=== PATIENT | female | born 1985 | race Caucasian/White ===

== ENCOUNTER 2019-12-06 14:02 | Inpatient (IN) | payer SELFPAY ==
[~2019-12-06] VITALS: Ht 160 cm; Wt 64.0 kg
[2019-12-06] MEDS ORDERED: ONDANSETRON HCL 4MG/2ML INJ IV STA (15:12)
[2019-12-06] MEDS ORDERED: SODIUM CHLORIDE 0.9% 1,000 ML IV ONE (15:12)
[2019-12-06] MEDS ORDERED: MORPHINE SULFATE 4 MG/ML CPJ (NOT FOR IM USE) IV STA (15:12)
[2019-12-06 15:51] LABS: CLARITY URINE CLEAR (CLEAR); COLOR URINE YELLOW (YELLOW); KETONES URINE NEGATIVE (NEGATIVE); LEUKOCYTE ESTERASE URINE 3+ (NEGATIVE); NITRITE URINE NEGATIVE (NEGATIVE); OCCULT BLOOD URINE 3+ (NEGATIVE); PROTEIN URINE NEGATIVE (NEGATIVE); SPECIFIC GRAVITY URINE 1.005 (1.005-1.030); UROBILINOGEN URINE 0.2 E.U./dL (0.2-1.0)
[2019-12-06 16:11] LABS: BASOPHILS % 0.7 % (0.0-2.0); EOSINOPHILS % 0.4 % (0.0-5.0); HEMATOCRIT. 39.8 % (36.0-48.0); HEMOGLOBIN. 13.4 g/dL (12.0-16.0); LYMPHOCYTES % 23.8 % (20.0-50.0); MEAN CORPUSCULAR HEMOGLOBIN 29.6 pg (28.0-32.0); MEAN CORPUSCULAR VOLUME 87.7 fL (81.0-99.0); MEAN PLATELET VOLUME 8.9 fl (7.4-10.4); MONOCYTES % 6.5 % (2.0-8.0); NEUTROPHILS % 68.6 % (40.0-76.0); PLATELET 273 x1000/uL (130-400); RED BLOOD CELL COUNT 4.54 mill/uL (4.2-5.4); RED CELL DISTRIBUTION WIDTH 14.7 % (11.6-14.6)
[2019-12-06 16:14] LABS: CHLORIDE 108 mEq/L (98-107)
[2019-12-06 16:22] LABS: HCG SCREEN NEGATIVE
[2019-12-06] MEDS ORDERED: MORPHINE SULFATE 4 MG/ML CPJ (NOT FOR IM USE) IV ONE (17:15)
[2019-12-06] MEDS ORDERED: CEFTRIAXONE 1 G PREMIX 50 ML IV ONE (17:15)
[2019-12-06] MEDS ORDERED: IOHEXOL-300 100 ML BOTTLE ONE (18:38)
[2019-12-06] MEDS ORDERED: NALOXONE HCL 0.4 MG/ML 1ML VIAL ONE (20:10)
[2019-12-07] VITALS (10 sets, daily range): BP systolic 92–125; BP diastolic 63–86
[2019-12-07] MEDS ORDERED: ACETAMINOPHEN 650MG/20.3ML UDC PO PRN (01:30)
[2019-12-07 02:10] LABS: BG BASE EXCESS 1.6 mmol/L (-2.0-2.0); BG CARBOXYHEMOGLOBIN 0.6 % (0.5-1.5); BG DEOXYHEMOGLOBIN 1.4 % (0.0-5.0); BG FRACTION INSPIRED OXYGEN 21; BG HCO3 ACT 26.6 mmol/L (22.0-26.0); BG METHEMOGLOBIN 0.3 % (0.0-1.5); BG OXYGEN SATURATION 98.6 % (92.0-98.5); BG OXYHEMOGLOBIN 97.7 % (94.0-97.0); BG PCO2 43.1 mmHg (35.0-45.0); BG PH 7.408 (7.350-7.450); BG PO2 115.3 mmHg (75.0-100.0); BG SAMPLE SITE RIGHT BRACHIAL; BG TOTAL HEMOGLOBIN 13.4 g/dL (12.0-18.0); BG VENT MODE ROOM AIR
[2019-12-07] MEDS ORDERED: NALOXONE HCL 0.4 MG/ML 1ML VIAL IV ONE (02:15)
[2019-12-07] MEDS: SODIUM CHLORIDE 0.9% 1,000 ML IV SCH ×2 (04:09→15:41)
[2019-12-07] MEDS ORDERED: HEPARIN 5000 UNITS/ML VIAL SUBCUT SCH (09:00)
[2019-12-07 09:39] LABS: METHADONE URINE SCREEN NEGATIVE (NEGATIVE); OPIATES URINE SCREEN NEGATIVE (NEGATIVE); PHENCYCLIDINE URINE SCREEN NEGATIVE (NEGATIVE)
[2019-12-07 09:40] LABS: *BARBITURATES SCREEN URINE NEGATIVE (NEGATIVE); *BENZODIAZEPINES SCREEN URINE NEGATIVE (NEGATIVE); *COCAINE SCREEN URINE NEGATIVE (NEGATIVE); CANNABINOID URINE SCREEN NEGATIVE (NEGATIVE)
[2019-12-07 09:46] LABS: *AMPHETAMINES SCREEN URINE PRESUMTIVE POSITIVE (NEGATIVE)
[2019-12-07 15:36] LABS: BASOPHILS % 0.9 % (0.0-2.0); EOSINOPHILS % 2.4 % (0.0-5.0); HEMATOCRIT. 39.2 % (36.0-48.0); LYMPHOCYTES % 29.3 % (20.0-50.0); MEAN CORPUSCULAR HEMOGLOBIN 29.4 pg (28.0-32.0); MEAN CORPUSCULAR VOLUME 88.7 fL (81.0-99.0); MEAN PLATELET VOLUME 8.3 fl (7.4-10.4); MONOCYTES % 6.1 % (2.0-8.0); NEUTROPHILS % 61.3 % (40.0-76.0); PLATELET 241 x1000/uL (130-400); RED BLOOD CELL COUNT 4.42 mill/uL (4.2-5.4); RED CELL DISTRIBUTION WIDTH 15.6 % (11.6-14.6)
[2019-12-07 16:04] LABS: CHLORIDE 106 mEq/L (98-107)
[2019-12-07] MEDS ORDERED: SODIUM CHLORIDE 0.9% 500 ML IV ONE ×2 (16:13→16:15)
[2019-12-07] MEDS ORDERED: SODIUM CHLORIDE 0.9% 500ML IV ONE (16:30)
[2019-12-08 13:15] LABS: UCG SCREEN NEGATIVE
== END 2019-12-07 19:15 | disposition home or self-care (01) | DRG 52 ==
LOC: ER 14:02 → EDBEDREQTM 21:59 → EDBEDREQ 21:59 → ENRESERV 22:10 → 5WST 23:34
PROVIDERS: ADMIT Internal Medicine; ATTEND Internal Medicine
DX: G92 Toxic encephalopathy (principal); F10.10 Alcohol abuse, uncomplicated; F15.10 Other stimulant abuse, uncomplicated; F19.129 Other psychoactive substance abuse with intoxication, unspecified; N39.0 Urinary tract infection, site not specified; R74.0 Nonspecific elevation of levels of transaminase and lactic acid dehydrogenase [LDH]; T43.625A Adverse effect of amphetamines, initial encounter; Z79.899 Other long term (current) drug therapy
CPT/HCPCS: 36415; 36600; 70551; 74022; 74177; 80048; 80053; 80305; 81003; 81025; 82375; 82805; 82962; 83605; 83735; 84703; 85025; 85379; 87077; 92610; 93005; 93970; 99285; J0696; J1644; J2270; J2310; J2405; J7030; Q9967